=== PATIENT | female | born 1990 | race Caucasian/White ===

== ENCOUNTER → 2017-04-23 | Outpatient (CLI) | payer OTHER | END | disposition home or self-care (01) | LOC: C.PAPS 07:54 | PROVIDERS: ATTEND Physician Assistant | DX: Z01.419 Encounter for gynecological examination (general) (routine) without abnormal findings (principal) ==

== ENCOUNTER 2022-01-09 16:30 | Inpatient (IN) ==
[2022-01-09 17:37] LABS: Amphetamines+Metham, Urine Neg (Neg); Barbiturates, Urine Neg (Neg); Benzodiazepine, Urine Neg (Neg); Cocaine, Urine Neg (Neg); MDMA (Ecstacy), Urine Neg (Neg); Methadone, Urine Neg (Neg); Opiate, Urine Neg (Neg); Phencyclidine, Urine Neg (Neg)
--- NOTE | 2022-01-09 17:50 | History & Physical Report ---
Date of Service January 09, 2022 Assessment & Plan (1) Oligohydramnios in third trimester: (2) complicated by subutex maintenance, antepartum: Admission and Anticipated Discharge Date Admission Date: 31 y/o G1 at 36 wks presents w/ anhydramnios -VSS -Fetus cat 1, reassuring -Anhydramnios - pt had normal fluid 5 days ago, denies any kind of leaking. SSE Was negative in the office and amnisure here is also negative so at this point cannot say that she has ruptured. The case was discussed w/ MFM as typically anhydramnios at 36 wks indicates delivery however there is certainly concern with her dating about whether she is truly 36 wks. Discussed case with Dr. Tadeo of [facility] and she recommended initiating betamethasone course now, with plan to start induction after 2nd dose is given as it will likely take around 24 hours for induction so will hopefully deliver around time of max benefit (24 hrs after 2nd shot). Also recommended for continuous monitoring until that point. This was also reviewed with pediatricians here and it is a cceptable to attempt delivery here with understanding that there is high risk for need for NICU. All of this was reviewed with the pt and her mother who verbalized understanding, are accepting of plan and would like to plan for induction here once second dose of betamethasone is given tomorrow. Also reviewed risk that baby would not tolerate induction as no fluid present either. It was also offered to discuss transfer with [facility] as that nicu is closer to her home and they are amenable to staying here as well. -GBS is pending, will need pcn when induction begins tomorrow -Ample time given for questions, answered to apparent satisfaction History of Present Illness Chief Complaint: Anhydramnios Primary Care Provider: Bin Doe MD 31 y/o G1 at 36 wks by LMP c/w 35 wk US on 01/04 presents to L&D from new OB visit. Didn't realize she was until thanksgiving and established care today. Dating US done 01/04 noted normal fluid dating c/w her remembered LMP. Anatomy today was attempted, what was visualized was normal but could not see everything due to DVP of 0. The only pocket of fluid noted had cord in it, placenta was also grade 3. SSE in office by my partner was neg nitrazine, pooling, ferning and pt is adamant that she has not had any sort of leaking since Friday. Does not drink much during the day but this is unchanged. 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 current Notes hx irreg periods, which is why going few mo w/o period was not unusual Denies hx STIs Last pap 2 yrs ago Allergies Allergy/AdvReac Type Severity Reaction Status Date / Time No Known Allergies Allergy Verified 01/09/22 14:35 Home Medications Medication Instructions Recorded Confirmed Type buprenorphine HCl 8 mg sublingual 8 mg SUBLINGUAL DAILY 01/04/22 01/09/22 History tablet prenat.vits,re,fjg-cpbx-evymb 1 tab PO DAILY 01/04/22 01/09/22 History Patient History Surgical History S/P wisdom tooth extraction Family History Grandmother Alzheimer disease Father Lung cancer Grandfather (Maternal) Heart disease Grandfather (Paternal) Heart disease Social History Smoking Status: Current every day smoker Tobacco Type: Cigarettes Age Started Using Tobacco: 20; Cigarettes Per Day: 5; Hx Alcohol Use: No Hx Substance Use: Yes Prescribed Medications: Tranquilizers Non-Prescribed Medications: Heroin Preferred Language: [place] Communication Ability: Effective Visual Impairment: Partially Limited Hearing Ability: Normal Beliefs That Will Affect Care: None marital status: Single marital status details: MOM: Kylie [phone] Current Living Situation: Family Current Living Situation Comment: lives with mother, 1 dog. current occupational status: employed current occupation: [employer] Feels Safe at Home: Yes Safety Concerns: Feels Safe At This Time Childhood Exposure to Second-Hand Smoke: Yes caffeine: No Gender Identity: Female Physical Exam Constitutional: WD/WN, vitals as above Respiratory: normal respiratory effort; no respiratory distress and no labored breathing Genitourinary: OB Exam Monitor Tracing: + external FHT monitor used, + external uterine monitor used (rare ctx) and + category I (140/mod/+accel/- decel) Results & Data ([facility]) Vital Signs (Past 12 Hours) Vital Signs Pulse BP 01/09/22 16:32 94 H 117/75 Laboratory Results PNL pending 01/09/22 Range/Units 16:30 Urine Opiates Screen Neg (Neg) Ur Methadone, Qual Neg (Neg) Urine Barbiturates Neg (Neg) Ur Phencyclidine (PCP) Neg (Neg) U Amphetamin/Meth Scrn Neg (Neg) MDMA (Ecstasy) Screen Neg (Neg) U Benzodiazepines Scrn Neg (Neg) Ur Cocaine Metabolite Neg (Neg) U Marijuana (THC) Screen Neg (Neg) Diagnostic Findings Anterior placenta, visualized anatomy is wnl however cannot see a number of parts due to anhydramnios. EFW 37% Coding Level of Care Code None Diagnoses Oligohydramnios in third trimester O41.03X0 complicated by subutex maintenance, antepartum O99.320; F11.20
[2022-01-09] MEDS ORDERED: BETAMETH SOD PHOS/ACETATE IA 6 MG/ML IM STA (17:57)
[2022-01-09] MEDS ORDERED: LACTATED RINGER'S 1,000 ML IV PRN (17:57)
[2022-01-09] MEDS ORDERED: AMMONIA, AROMATIC INHAL 1 EA AMP INH PRN (17:57)
[2022-01-09] MEDS ORDERED: OXYTOCIN 30 UNITS/500 ML BAG IV PRN (17:57)
[2022-01-09] MEDS: LACTATED RINGER'S 1,000 ML IV PRN ×2 (18:11→22:48)
[2022-01-09] MEDS ORDERED: PENICILLIN G POTASSIUM 6 MU in DEXTROSE 5% 250 ML IV ONE (18:15)
[2022-01-09 18:22] LABS: Appearance Urine Clear (Clear); Bilirubin Urine Negative (Negative); Blood Urine Negative (Negative); Color Urine Yellow; Glucose Urine UA Negative (Negative); Ketones Urine Negative (Negative); Leukocyte Esterase Urine 2+ (Negative); Nitrite Urine Negative (Negative); Protein Urine Negative (Negative); Specific Gravity Urine 1.003 (1.000-1.030); Urobilinogen Urine Negative (Negative)
[2022-01-09 18:47] LABS: RBC Urine Automated 0-4 /hpf (0-4)
[2022-01-09 18:48] LABS: Bacteria Urine Automated 1+ (Negative); Cast Urine Automated 0 /lpf (0-5); Renal Epithelial Cells Urine 0-5 /lpf (0-5)
[2022-01-09] MEDS ORDERED: PENICILLIN G POTASSIUM 3 MU in DEXTROSE 5% 100 ML IV PRN (20:57)
[2022-01-10] MEDS: buprenorphine HCL 2 MG SUBL SL SCH ×2 (00:27→09:00)
[2022-01-10] MEDS: LACTATED RINGER'S 1,000 ML IV PRN ×2 (02:22→08:03)
--- NOTE | 2022-01-10 02:41 | Communication Note ---
Date of Service: January 10, 2022 Called by nursing that baby was having decel, nursing notes that she was resting comfortably when it happened - it did recover with IVF, maternal repositioning and resumed cat 1 tracing. Did not necessarily appear contraction related. Has had occasional decels earlier in this evening that resolved spontaneously. Has gotten one dose of betamethasone thus far. I did discuss ideally that we would get 2nd dose in the evening today before delivering pt, however if these decels begin to occur more frequently or do not resolve, may result in urgent/emergent CS. Discussed indications, risks, benefits, alternatives with risks including infection, bleeding, injury to adjacent structures (bowel, bladder, ureters, blood vessels, nerves, baby), possible need for blood transfusion and/or life saving hysterectomy, VTE. Consent reviewed in detail w/ pt and signed after all questions answered to her satisfaction. Will have anesthesia discuss anesthesia risk for different scenarios if indicated and that way pt is aware as well.
--- NOTE | 2022-01-10 07:31 | Obstetrical Progress Note ---
Date of Service January 10, 2022 Assessment & Plan (1) Oligohydramnios in third trimester: (2) complicated by subutex maintenance, antepartum: (3) No care in current in third trimester: Plan: -For majority of the time fetus has cat 1 tracing, then will intermittently have a decel every 3 hours that resolves. Case had been discussed w/ mfm and peds last evening, peds was ok with staying at that time. This had been discussed with pt and her mom last evening regarding monitoring here and plan for delivery here vs option to transfer now and delivery at hospital with nicu/tertiary care as there is certainly risk for transfer of baby after delivery and separation from mom - at that time, mom and pt desired to stay here. This AM, peds is more concerned with need for transfer following delivery and they discussed with pt regarding transfer. Pt wants to discuss w/ mom who had to leave due to family emergency Admission and Anticipated Discharge Date Admission Date: January 09, 2022 Subjective Pt resting overnight. Has had few Physical Exam Genitourinary: OB Exam Monitor Tracing: + external FHT monitor used, + external uterine monitor used (irreg ctx) and + category II (120/mod/+accel/will intermit have decels lasting 30s to 1-2 min) Results & Data ([facility] [place]) Vital Signs (Past 12 Hours) Vital Signs Temp Pulse Resp BP 01/10/22 07:15 77 104/52 L 01/10/22 06:00 18 01/10/22 05:00 98.6 F 01/10/22 04:30 18 01/10/22 04:00 18 01/10/22 02:11 70 111/72 01/10/22 01:25 18 01/10/22 00:00 18 01/09/22 23:17 98.6 F 71 115/59 L 01/09/22 21:30 18 PG Care Time/CCT Total # of Minutes Spent Total Time Spent with Patient: Total time spent is greater than 50% in coordination of care (as documented) at patient's floor/unit and/or counseling patient: Coding Level of Care Code None Diagnoses Oligohydramnios in third trimester O41.03X0 complicated by subutex maintenance, antepartum O99.320; F11.20 No care in current in third trimester O09.33
--- NOTE | 2022-01-10 12:44 | Communication Note ---
Date of Service: January 10, 2022 FHT's have been reassuring overnight with rare variable decelerations noted. No decels with spontaneous contractions noted. Bedside ultrasound does not show an appreciable change in DVP despite IV fluids overnight. Still one small pocket that also contains umbilical cord. This morning, the pediatric hospitalist expressed concerns that the baby would need NICU care considering the history of no care, potentially later with anhydramnios. After a long discussion with the patient and her mother, who live close to [facility], that transfer care to that facility would be better overall fro mother and baby in case NICU care would be necessary. [facility] was contacted and they will accept her in transfer. I spoke to both Dr. Griffin and Dr. Vang who is the [facility] physician accepting the transfer.
[2022-01-10] MEDS ORDERED: BETAMETH SOD PHOS/ACETATE IA 6 MG/ML IM SCH (18:00)
--- NOTE | 2022-01-16 06:05 | Discharge Summary (DS) ---
DATE OF ADMISSION: 01/09/2022. DATE OF DISCHARGE: 01/10/2022. PRINCIPAL DIAGNOSES: Intrauterine at 35-36 weeks. No care. Subutex maintenance, history of heroin abuse, smoker, anhydramnios. HISTORY: The patient presented to the office on 01/09/2022 for her first OB visit. She had had an u ltrasound 5 days earlier for dating which put the at 35 and 2/7 weeks. She was noted to herring ve a normal DVP on that ultrasound. She presented for her doctor's visit on 01/09/2022 and an ultras ound was performed to do anatomy. On that ultrasound, the DVP was noted to be zero. Anatomy scan wa s difficult because of the lack of fluid. She was checked for rupture of membranes. Nitrazine pooli ng and ferning were all negative. AmniSure was also negative. She was placed on the monitor for a n onstress test and the infant was reactive; however, because of the absence of fluid and the concern t hat this was a , she was sent to labor and delivery for monitoring overnight and to receive betamethasone in preparation for delivery. It was also noted on the ultrasound that her plac enta was grade 3 and markedly calcified. Her heart monitor strip was reassuring over the night . She received her first betamethasone shot at approximately 1700 on 01/09/2022. Her second dose wa s due at the same time on 01/10/2022. During the course of her admission, her care was discussed wit h the pediatric hospitalist. Initially it was felt that she could deliver at [facility]; however, because of her multiple risk factors and the lack of fluid, there was a concern that the may have to be transferred after delivery. The family lived in the [place] area and would have wanted the baby to be transferred to [place] if indeed it had to be transferred after delivery. After much disc ussion, it was decided to transfer the patient still to [facility] where her care was accepted by Dr. Dasilva and Dr. Vang, who is a maternal medicine doctor at [place]. This was done in the afternoon on 01/10/2022. Hemoglobin was 10.1, hematocrit 32.0, white count was 7380. Urine drug screen was negative. Glucola was normal. RPR was nonreactive. Chlamydia was not detected. Hepatitis B and hepatitis C were negative. HIV was also negative. Rubella is immune. CO VID test was negative. She will return to us for care and any concerns after her discharg e from [facility]. Job ID: [id number]
== END 2022-01-10 13:25 | disposition short-term general hospital (02) | DRG 832 ==
LOC: OPB 16:30 → 4S1 16:32
DX: O36.8330 Maternal care for abnormalities of the fetal heart rate or rhythm, third trimester, not applicable or unspecified; O09.33 Supervision of pregnancy with insufficient antenatal care, third trimester; O41.8X30 Other specified disorders of amniotic fluid and membranes, third trimester, not applicable or unspecified; Z20.822 Contact with and (suspected) exposure to COVID-19; O99.323 Drug use complicating pregnancy, third trimester; F17.210 Nicotine dependence, cigarettes, uncomplicated; F11.20 Opioid dependence, uncomplicated; O99.333 Smoking (tobacco) complicating pregnancy, third trimester; Z79.899 Other long term (current) drug therapy; Z3A.36 36 weeks gestation of pregnancy; O41.03X0 Oligohydramnios, third trimester, not applicable or unspecified